=== PATIENT | female | born 1980 | race Caucasian/White ===

== ENCOUNTER 2023-09-01 09:32 | Outpatient (AMB) | payer BC, SELFPAY ==
--- NOTE | 2023-09-01 09:43 | A.OFFPC_ITS ---
Vital Signs 09/01/23 09:47 Height 5 ft 7 in Weight 299 lb 4 oz BMI 46.9 BP 118/62 Blood Pressure Location Lt brachial Position Sitting Pulse 80 Pulse Source Pulse Oximeter Pulse Oximetry (%) 98 Oxygen Delivery Method Room Air Intake Visit Reasons: establish care Intake Note: Patient is a new patient here to establish care for Protein S deficiency. Transferring care from unknown. Medical records have not been requested and have received. Salvationist Required: No Shed Workers Supervisor: Not Required per policy Accompanied by: Self / Same As Patient Allergies No Known Allergies Allergy (Verified 09/01/23 10:42) Medication List - Last Reconciled 09/01/23 by Ehsan Cisneros MD No Known Home Meds Tobacco use date assessed: 09/01/23 Dental Screening Dental Screen Date: 09/01/23 Did you have a dental visit in the last 12 months?: No Did you have a dental problem in the last 6 months where you did not have access to dental care?: No Was dental information given to patient?: Patient has dentist HPI establish care HPI Details 43-year-old female presents to the [facility] to establish her care. Patient reports that she has not seen a provider in 13 years. She was last seen in [place] when she had needed care. Patient reports that she has a known deficiency of protein S. Currently on no anticoagulation. However, she reports that she needs anticoagulation for air travel. 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 1. Little interest or pleasure in doing things: not at all 2. Feeling down, depressed, or hopeless: not at all 3. Trouble falling or staying asleep, or sleeping too much: not at all 4. Feeling tired or having little energy: not at all 5. Poor appetite or overeating: not at all 6. Feeling bad about yourself - or that you are a failure or have let yourself or your family down: not at all 7. Trouble concentrating on things, such as reading the newspaper or watching television: not at all 8. Moving or speaking so slowly that other people could have noticed. Or the opposite - being so fidgety or restless that you have been moving around a lot more than usual: not at all 9. Thoughts that you would be better off or of hurting yourself in some way: not at all Total score: 0 Depression Screening Interpretation: Negative Depression Screening Done: Yes Source: Developed by Drs. Adrian Adkins, Steph Ferraro, Cole Mcqueen and colleagues, with an educational kori from [employer]. Thrive Questionnaire Date Thrive assessed: 09/01/23 I am a: Patient What is your living situation today?: I have a steady place to live Within the past 12 months, did the food you bought not last and you didn't have the money to get more?: Never true Within the past 12 months, did you worry whether your food would run out before you got money to buy more?: Never true Do you have trouble paying for medicines?: No Do you have trouble getting transportation to medical appointments?: No Do you have trouble paying your heating and electricity bill?: No Do you have trouble taking care of your child, family member or friend?: No Do you have trouble with day-to-day activities such as bathing, preparing meals, shopping, managing finances, etc.?: No Are you currently unemployed and looking for a job?: No Are you interested in more education?: No Currently or been in a relationship where the following occur: no concerns reported THRIVE Score: 0 AUDIT C Alcohol Use Questionnaire (AUDIT-C) 1. How often do you have a drink containing alcohol?: Never Total Score: 0 ASHLEE-7 AMB Questionnaire ASHLEE-7 Date ASHLEE - 7 assessed: 09/01/23 Feeling nervous, anxious, or on edge: 0 = Not at all Not being able to stop or control worryin = Not at all Worrying too much about different things: 0 = Not at all Trouble relaxin = Not at all Being so restless that it is hard to sit still: 0 = Not at all Becoming easily annoyed or irritable: 0 = Not at all Feeling afraid as if something awful might happen: 0 = Not at all Total ASHLEE-7 score (0-4 normal; 5-9 mild; 10-14 moderate; 15-21 severe): 0 Source: Developed by Drs. Adrian Adkins, Steph Ferraro, Cole Mcqueen and colleagues, with an educational kori from [employer]. Physical exam (Primary Care) Vital Signs: Last Vital Signs Pulse 80 09/01/23 09:47 BP 118/62 09/01/23 09:47 Pulse Ox 98 09/01/23 09:47 Oxygen Delivery Method Room Air 09/01/23 09:47 BMI result Body Mass Index 46.9 BMI Assessment/Plan discussion: High (1 lb per week weight loss suggested.) BMI High, discussed plan: lifestyle, weight reduction, dietary and physical activity Tobacco/Smoking Status: Tobacco use Status Tobacco use date assessed 09/01/23 09/01/23 09:57 Patient Tobacco Use Status Former Tobacco user 09/01/23 09:57 e-Cigarette/Vaping Use Never Used 09/01/23 09:57 PHQ-9: PHQ-9 Score PHQ-9: Total score 0 09/01/23 09:57 Depression Screening Interpretation: Negative Thrive Assessment: Date of Thrive Assessment Date Thrive assessed 09/01/23 09/01/23 09:57 Currently or been in a relationship where the following occur: no concerns repo rted Const General: cooperative and healthy appearing Nutritional Appearance: well nourished Orientation/consciousness: patient oriented x3 Limitations: no limitations HENMT Head: Yes normal to inspection Eyes General: appearance normal, both eyes and all related structures Neck Neck: Yes normal visual inspection Chest Chest palpation & inspection: normal palpation of entire chest wall Resp Effort & Inspection: normal respiratory effort Neuro General: patient oriented x3 Assessment and Plan Assessment & Plan (1) Protein S deficiency: Code(s): D68.59 - Other primary thrombophilia Plan: Blood work has been requested. Will call with the results. Patient requesting episodic anticoagulation which I am not familiar with. Hematology consult will be obtained. Orders: Orders Lipid Panel Today D68.59 - Other primary thrombophilia Thyroid Stimulating Hormone Today D68.59 - Other primary thrombophilia UA and rflx microscopic Today D68.59 - Other primary thrombophilia Basic Metabolic Panel Today D68.59 - Other primary thrombophilia Complete Blood Count no Diff Today D68.59 - Other primary thrombophilia Liver Panel Today D68.59 - Other primary thrombophilia Coding Level of Care Code New Pt Level 4 (14023) Diagnoses Protein S deficiency D68.59
[2023-09-01 09:47] VITALS: BP 118/62; PULSE 80; O2SAT 98; BMI 46.9
== END 2023-09-01 10:40 | disposition home or self-care (01) ==
PROVIDERS: PCP Physician Assistant; Visit Provider Internal Medicine
DX: D68.59 Other primary thrombophilia (principal)
CPT/HCPCS: 99204

== ENCOUNTER 2023-09-01 10:44 | Outpatient (REF) | payer BC, SELFPAY ==
[2023-09-01 12:03] LABS: Hematocrit 39.5 % (37.0-47.0); Hemoglobin 12.7 g/dl (12.0-16.0); Mean Corpuscular Volume 79.8 fL (80.0-98.0); Platelet Count 402 X10*3/uL (160-400); Red Blood Count 4.95 X10*6/uL (4.20-5.50)
[2023-09-01 12:31] LABS: Bacteria Urine Trace (None Seen); Hyaline Casts Urine 0-2 /LPF (0-2); RBC Urine 0-2 /HPF (0-2); Squamous Epithelial Cell Urine 0-2 /HPF (0-2); WBC Urine 0-5 /HPF (0-5)
[2023-09-01 12:47] LABS: Alanine Aminotransferase 17 U/L (0-31); Albumin Level 3.9 g/dL (3.5-5.0); Alkaline Phosphatase 76 U/L (39-117); Anion Gap 14 (12-20); Aspartate Amino Transferase 10 U/L (5-31); Bilirubin Direct 0.1 mg/dL (0.0-0.5); Bilirubin Total 0.4 mg/dL (0.0-1.0); Blood Urea Nitrogen 14 mg/dL (9-16); Calcium 9.3 mg/dL (8.4-10.2); Carbon Dioxide 26 mmol/L (22-29); Chloride 103 mmol/L (96-108); Cholesterol 232 mg/dL (<200); Estimated Glomerular Filt Rate > 60; Glucose Random 110 mg/dL (60-115); HDL Cholesterol 56 mg/dL (>40); LDL Cholesterol Calculated 146 mg/dL (<100); Potassium 3.9 mmol/L (3.3-5.1); Sodium 139 mmol/L (135-145); Total Protein 7.8 g/dL (6.5-8.0); Triglycerides 150 mg/dL (<150)
[2023-09-01 13:01] LABS: Thyroid Stimulating Hormone 1.97 uIU/mL (0.32-4.0)
== END 2023-09-01 10:45 | disposition home or self-care (01) ==
LOC: HO.LAB 10:44
PROVIDERS: Visit Provider Internal Medicine
DX: D68.59 Other primary thrombophilia (principal)
CPT/HCPCS: 36415; 80048; 80061; 80076; 81001; 84443; 85027

== ENCOUNTER 2023-09-20 10:46 | Outpatient (AMB) | payer BC, SELFPAY ==
[2023-09-20 10:47] VITALS: BP 144/78; PULSE 106; O2SAT 97
--- NOTE | 2023-09-20 10:47 | HO.NEPHOV ---
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 Bushra is a pleasant 43-year-old woman with history of protein S deficiency who was recently found to have proteinuria by dipstick. She has been referred for evaluation of proteinuria. Overall Bushra has been enjoying reasonably good health. Her grandmother and mother tested positive for protein S deficiency. She underwent the genetic testing and tested positive for protein S deficiency. She has no history of any thrombotic events. . She has 1 child age 13. Overall was normal. She underwent exploratory laparotomy for abdominal mass and was found to have a distended bladder Her renal function has been stable. She has dyslipidemia. Atorvastatin has been prescribed but she has not started taking the medication. No history of hypertension and diabetes mellitus She has an elevated BMI. She is history of smoking she quit smoking few years ago. She used to smoke heavily more than a pack a day. No history of any alcohol abuse. She is originally from [place]. Her used to be in the service currently he drives a truck. 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 Cognitive needs: No Hearing needs: No Vision needs: No Physical Exam Vital Signs: Last Vital Signs Pulse 106 H 09/20/23 10:47 BP 144/78 H 09/20/23 10:47 Pulse Ox 97 09/20/23 10:47 Oxygen Delivery Method Room Air 09/20/23 10:47 Const General: comfortable Nutritional Appearance: well nourished Orientation/consciousness: patient oriented x3 HEENT Head: No normal to inspection Mouth: moist mucous membranes Neck Neck: Yes supple and Yes no JVD Resp Auscultation: clear to auscultation bilaterally, no rales and rub present Cardio Jugular venous distension: no JVD Palpation: no palpable S3 and no palpable S4 Heart sounds: no rubs GI Palpation (GI): Soft to palpation and nontender Percussion: No Fluid wave present General: Yes no CVA tenderness Back/Spine/Pelvis Back: no CVA tenderness Skin General skin exam: no rashes or lesions noted Neuro General: patient oriented x3 Extrem General: Yes no pedal edema and No clubbing Results Reviewed Nephrology Results: Hgb 12.7 g/dl (12.0-16.0) 09/01/23 WBC 13.8 X10*3/uL (4.8-10.8) H 09/01/23 Plt Count 402 X10*3/uL (160-400) H 09/01/23 Sodium 139 mmol/L (135-145) 09/01/23 Potassium 3.9 mmol/L (3.3-5.1) 09/01/23 Chloride 103 mmol/L (96-108) 09/01/23 Carbon Dioxide 26 mmol/L (22-29) 09/01/23 BUN 14 mg/dL (9-16) 09/01/23 Creatinine 0.69 mg/dL (0.5-1.4) 09/01/23 Calcium 9.3 mg/dL (8.4-10.2) 09/01/23 Urine Protein 300 (3+) mg/dL (Neg-Trace) H 09/01/23 Assessment & Plan Assessment & Plan (1) Proteinuria: Code(s): R80.9 - Proteinuria, unspecified Category: Medical (2) Protein S deficiency: Code(s): D68.59 - Other primary thrombophilia Category: Medical Plan . 43-year-old woman with a history of protein insufficiency and elevated BMI as proteinuria by dipstick. Initiated workup for proteinuria including urine protein creatinine ratio and basic serologies. At the present time renal function is stable. Given the history of dyslipidemia if she has nephrotic range proteinuria we she will need further workup for nephrotic syndrome. Blood pressure is well controlled. Encouraged her to stay on low-sodium diet She will benefit from weight loss. Further workup and recommendation will be based on the outcome of the baseline investigations as outlined Orders: Orders Complement C3 Today R80.9 - Proteinuria, unspecified Complement C4 Today R80.9 - Proteinuria, unspecified Creatinine Urine Today N05.9 - Unspecified nephritic syndrome with unspecified morphologic changes, R80.9 - Proteinuria, unspecified UA and rflx microscopic Today R80.9 - Proteinuria, unspecified Partial Thromboplastin Time Today D68.59 - Other primary thrombophilia, R80.9 - Proteinuria, unspecified Neutrophil Cytoplasma Ab Today R80.9 - Proteinuria, unspecified NAMRATA Reflex Titer and Pattern Today R80.9 - Proteinuria, unspecified Phospholipase A2 Receptor Pnl Today R80.9 - Proteinuria, unspecified Protein Electrophoresis, Serum Today R80.9 - Proteinuria, unspecified Total Protein Urine Random Today R80.9 - Proteinuria, unspecified Prothrombin Time INR Today D68.59 - Other primary thrombophilia, R80.9 - Proteinuria, unspecified Coding Level of Care Code New Pt Level 4 (94756) Diagnoses Proteinuria R80.9 Protein S deficiency D68.59
== END 2023-09-20 11:11 | disposition home or self-care (01) ==
PROVIDERS: PCP Internal Medicine; Visit Provider Internal Medicine Hypertension Specialist
DX: R80.9 Proteinuria, unspecified (principal); D68.59 Other primary thrombophilia
CPT/HCPCS: 99204

== ENCOUNTER → 2023-09-20 10:46 | Outpatient (BNVA) | payer BC, SELFPAY | PROVIDERS: PCP Internal Medicine; Visit Provider Internal Medicine Hypertension Specialist ==

== ENCOUNTER 2023-09-20 11:21 | Outpatient (REF) | payer BC, SELFPAY ==
[2023-09-20 11:59] LABS: INTERNATIONAL NORM RATIO 0.8 (0.9-1.1); Prothrombin Time 10.3 SEC (11.1-13.3)
[2023-09-20 12:02] LABS: Appearance Urine Clear; Color Urine Yellow; Glucose Urine UA 100 mg/dL (Negative); Leukocyte Esterase Urine Negative (Negative); Nitrite Urine Negative (Negative); Specific Gravity - Urine 1.015 (1.005-1.025); UMIC TRIGGER UA YES; Urine Blood Small (1+) (Negative); Urine Ketones Negative (Negative); Urine Protein 100 (2+) mg/dL (Neg-Trace)
[2023-09-20 12:02] LABS: Partial Thromboplastin Time 28.2 SEC (26.0-36.8)
[2023-09-20 12:12] LABS: Bacteria Urine Trace (None Seen); Hyaline Casts Urine 0-2 /LPF (0-2); RBC Urine 0-2 /HPF (0-2); Squamous Epithelial Cell Urine 0-2 /HPF (0-2); WBC Urine 0-5 /HPF (0-5)
[2023-09-20 12:21] LABS: Creatinine Urine 39.58 mg/dL; Total Protein Urine Random 102 mg/dL (<12)
[2023-09-21 22:58] LABS: Prot Elec - Albumin 3.4 g/dL (3.8-4.8); Prot Elec - Alpha1 0.4 g/dL (0.2-0.3); Prot Elec - Alpha2 0.9 g/dL (0.5-0.9); Prot Elec - Beta 1 0.5 g/dL (0.4-0.6); Prot Elec - Beta 2 0.5 g/dL (0.2-0.5); Prot Elec - Gamma 1.2 g/dL (0.8-1.7); Prot Elec - Total Protein 6.8 g/dL (6.1-8.1)
[2023-09-22 08:54] LABS: Complement C3 212 mg/dL (83-193)
[2023-09-24 11:53] LABS: Atypical P-ANCA Titer 1:20 titer (<1:20); Neutrophil Cyto Ab Screen ATYP P-ANCA POS (NEGATIVE)
[2023-09-27 09:39] LABS: Anti Nuclear Antibody Pattern Nuclear, Homogeneous; Anti Nuclear Antibody Screen POSITIVE (NEGATIVE)
[2023-10-01 21:24] LABS: Phospholipase A2 IgG ELISA <4 RU/mL; Phospholipase A2 IgG IFA NEGATIVE (NEGATIVE)
== END 2023-09-20 11:22 | disposition home or self-care (01) ==
LOC: HO.LAB 11:21
PROVIDERS: Visit Provider Internal Medicine Hypertension Specialist
DX: R80.9 Proteinuria, unspecified (principal); D68.59 Other primary thrombophilia; N05.9 Unspecified nephritic syndrome with unspecified morphologic changes
CPT/HCPCS: 36415; 81001; 81003; 82570; 83520; 84156; 84165; 85610; 85730; 86036; 86037; 86038; 86039; 86160; 86255

== ENCOUNTER 2023-09-21 09:15 | Outpatient (REF) | payer BC, SELFPAY ==
--- NOTE | ~2023-09-21 | MM_ITS ---
EXAMINATION: MM SCREENING DIGITAL BREAST TOMOSYNTHESIS, BILATERAL CLINICAL INFORMATION: Screening. Asymptomatic. No family history of breast CA. No prior surgeries. (As per technologist note) COMPARISON: Mammography: None. Baseline exam. TECHNIQUE: Digital breast tomosynthesis is performed in both the craniocaudal and mediolateral oblique views along with computer-aided detection (CAD). Synthesized 2D images are generated from the tomosynthesis. FINDINGS: There are scattered areas of fibroglandular density (ACR BI-RADS breast composition Category b). There are skin calcifications in the right greater than left breasts. These are benign. Minor parenchymal asymmetry in the upper outer posterior right breast, which has the appearance of benign breast tissue and is not suspicious on mammography. There is a lymph node in the axillary tail of the left breast. In the left breast there is a focal tubular asymmetry in the 6:00 axis, anterior one third, most likely a dilated duct, however spot compression views recommended in the CC and MLO projections, with full-field left ML view as well. Ultrasound recommended should the finding persist. MM/MM tomosynthesis screening BI IMPRESSION: Focal asymmetry left breast 6:00 axis as detailed above. Diagnostic views recommended as above. No suspicious finding in the right breast. ASSESSMENT: BI-RADS BI-RADS 0 - Incomplete: Needs additional Imaging. RECOMMENDATION: 1. Additional views of the 6:00 axis left breast. 2. Targeted ultrasound if warranted after review of the additional views. 3. Radiology department staff will contact the patient for additional imaging. Additional Imaging required This examination should not preclude the clinical evaluation of a suspicious palpable abnormality.
== END 2023-09-21 09:16 | disposition home or self-care (01) ==
LOC: HO.MAMMO 09:15
PROVIDERS: PCP Internal Medicine; Visit Provider Internal Medicine
DX: Z12.31 Encounter for screening mammogram for malignant neoplasm of breast (principal)
CPT/HCPCS: 77063; 77067

== ENCOUNTER → 2023-09-21 09:45 | Outpatient (BNV) | payer BC, SELFPAY | PROVIDERS: PCP Internal Medicine; Visit Provider Radiology Diagnostic Radiology | DX: Z12.31 Encounter for screening mammogram for malignant neoplasm of breast (principal) | CPT/HCPCS: 77063; 77067 ==

== ENCOUNTER → 2023-09-29 09:47 | Outpatient (BNV) | payer BC, SELFPAY | PROVIDERS: PCP Internal Medicine; Referring Provider Internal Medicine; Visit Provider Internal Medicine | DX: D68.59 Other primary thrombophilia (principal) | CPT/HCPCS: 99204 ==

== ENCOUNTER 2023-09-30 09:39 | Outpatient (AMB) | payer BC, SELFPAY ==
[2023-09-30 09:41] VITALS: BP 118/86; PULSE 102; O2SAT 98; BMI 47.1
--- NOTE | 2023-09-30 09:41 | HO.NEPHOV_ITS ---
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 Bushra is a pleasant 43-year-old woman with history of protein S deficiency who was recently found to have proteinuria by dipstick. She has been referred for evaluation of proteinuria. Overall Bushra has been enjoying reasonably good health. Her grandmother and mother tested positive for protein S deficiency. She underwent the genetic testing and tested positive for protein S deficiency. She has no history of any thrombotic events. . She has 1 child age 13. Overall was normal. She underwent exploratory laparotomy for abdominal mass and was found to have a distended bladder Her renal function has been stable. She has dyslipidemia. Atorvastatin has been prescribed but she has not started taking the medication. No history of hypertension and diabetes mellitus She has an elevated BMI. She is history of smoking she quit smoking few years ago. She used to smoke heavily more than a pack a day. No history of any alcohol abuse. She is originally from [place]. Her used to be in the service currently he drives a truck. 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 Cognitive needs: No Hearing needs: No Vision needs: No Physical Exam Vital Signs: Last Vital Signs Pulse 102 H 09/30/23 09:41 BP 118/86 09/30/23 09:41 Pulse Ox 98 09/30/23 09:41 Oxygen Delivery Method Room Air 09/30/23 09:41 BMI result Body Mass Index 47.1 Const General: comfortable Nutritional Appearance: well nourished Orientation/consciousness: patient oriented x3 HEENT Head: No normal to inspection Mouth: moist mucous membranes Neck Neck: Yes supple and Yes no JVD Resp Auscultation: clear to auscultation bilaterally, no rales and rub present Cardio Jugular venous distension: no JVD Palpation: no palpable S3 and no palpable S4 Heart sounds: no rubs GI Palpation (GI): Soft to palpation and nontender Percussion: No Fluid wave present General: Yes no CVA tenderness Back/Spine/Pelvis Back: no CVA tenderness Skin General skin exam: no rashes or lesions noted Neuro General: patient oriented x3 Extrem General: Yes no pedal edema and No clubbing Results Reviewed Nephrology Results: Hgb 12.7 g/dl (12.0-16.0) 09/01/23 WBC 13.8 X10*3/uL (4.8-10.8) H 09/01/23 Plt Count 402 X10*3/uL (160-400) H 09/01/23 Sodium 139 mmol/L (135-145) 09/01/23 Potassium 3.9 mmol/L (3.3-5.1) 09/01/23 Chloride 103 mmol/L (96-108) 09/01/23 Carbon Dioxide 26 mmol/L (22-29) 09/01/23 BUN 14 mg/dL (9-16) 09/01/23 Creatinine 0.69 mg/dL (0.5-1.4) 09/01/23 Calcium 9.3 mg/dL (8.4-10.2) 09/01/23 Urine Protein 100 (2+) mg/dL (Neg-Trace) H 09/20/23 Urine Creatinine 39.58 mg/dL 09/20/23 Assessment & Plan Assessment & Plan (1) Protein S deficiency: Code(s): D68.59 - Other primary thrombophilia Category: Medical (2) Proteinuria: Code(s): R80.9 - Proteinuria, unspecified Category: Medical Plan . 43-year-old woman with a history of protein insufficiency and elevated BMI as proteinuria Urine protein creatinine ratio was 2.6. NAMRATA was positive atypical p-ANCA positive. C ANCA p-ANCA titers were pending C3 elevated at 2 1 2. C4 was 39. Serum cholesterol 232 with serum albumin of 3.4. Bushra has nephrotic syndrome. Differential diagnosis would include membranous nephropathy he is or FSGS in setting of obesity versus others I will arrange for a kidney biopsy for definite diagnosis. At the present time renal function is stable. Blood pressure is well controlled. Encouraged her to stay on low-sodium diet She will benefit from weight loss. Currently being evaluated by Hematology for protein S deficiency. Orders: Orders CT biopsy renal RT Today D68.59 - Other primary thrombophilia, R80.9 - Proteinuria, unspecified Coding Level of Care Code Est Pt Level 4 (95976) Diagnoses Protein S deficiency D68.59 Proteinuria R80.9
== END 2023-09-30 09:56 | disposition home or self-care (01) ==
PROVIDERS: PCP Internal Medicine; Visit Provider Internal Medicine Hypertension Specialist
DX: D68.59 Other primary thrombophilia (principal); R80.9 Proteinuria, unspecified
CPT/HCPCS: 99214

== ENCOUNTER → 2023-09-30 09:39 | Outpatient (BNVA) | payer BC, SELFPAY | PROVIDERS: PCP Internal Medicine; Visit Provider Internal Medicine Hypertension Specialist ==

== ENCOUNTER 2023-10-25 12:39 | Outpatient (REF) | payer BC, SELFPAY ==
--- NOTE | ~2023-10-25 | US_ITS ---
EXAMINATION: MM DIAGNOSTIC DIGITAL BREAST TOMOSYNTHESIS, LEFT US BREAST LIMITED, LEFT MAMMOGRAPHY: CLINICAL INFORMATION: Evaluate tubular structure left breast anterior one third approximately 6:30 o'clock axis, seen on screening baseline exam. COMPARISON: Mammography: Baseline exam 09/21/2023. TECHNIQUE: Digital breast tomosynthesis was performed in the following views: Full-field 3-D left mediolateral view, as well as 3-D spot compression left CC and MLO views. Computer-aided diagnosis was used for this study. This was followed by targeted left breast ultrasound. FINDINGS: There are scattered areas of fibroglandular density (ACR BI-RADS breast composition Category b). Diagnostic views demonstrate persistence of a tubular structure in the 6:30 o'clock axis of the left breast measuring approximately 1.1 x 0.4 x 0.6 cm with circumscribed margins and no surrounding parenchymal distortion. This is likely a dilated duct. We will evaluate this with ultrasound. No new suspicious finding in the left breast. Stable lymph node in the upper outer quadrant. ULTRASOUND: CLINICAL INFORMATION: As above. COMPARISON: No prior ultrasound. TECHNIQUE: Targeted sonographic evaluation was performed using a high frequency linear transducer. Left breast was examined in the 6:00 to 7:00 axis in Selected archived documentation. FINDINGS: LEFT BREAST: In what appears to be a dilated focal duct, there is a mildly hypoechoic serpiginous mass seen at the 6:00 30 o'clock axis, 2 cm the nipple, measuring 1.1 x 0.4 x 0.6 cm. No internal color Doppler signal. No posterior features. No surrounding parenchymal distortion. Findings are suspicious for a papilloma. Ultrasound-guided biopsy is recommended for confirmation. No additional suspicious findings in the left breast. No additional duct ectasia seen. US/US breast LT limited mamm only IMPRESSION: -Dilated duct with internal probable mass,? Papilloma in the left breast 6:30 o'clock axis, 2 cm from the nipple, correlating well with the finding on mammography. Ultrasound-guided biopsy is recommended for confirmation. -Findings and impression were discussed with the patient in detail. OVERALL ASSESSMENT: Mammography: BI-RADS 4 - Suspicious finding Ultrasound: BI-RADS 4 - Suspicious finding RECOMMENDATION: Biopsy recommended
== END 2023-10-25 12:40 | disposition home or self-care (01) ==
LOC: HO.MAMMO 12:39
PROVIDERS: PCP Internal Medicine; Visit Provider Internal Medicine
DX: N64.89 Other specified disorders of breast (principal)
CPT/HCPCS: 76642; 77061; 77065

== ENCOUNTER → 2023-10-25 13:00 | Outpatient (BNV) | payer BC, SELFPAY | PROVIDERS: PCP Internal Medicine; Visit Provider Radiology Diagnostic Radiology | DX: R92.8 Other abnormal and inconclusive findings on diagnostic imaging of breast (principal) | CPT/HCPCS: 76642; 77061; 77065 ==

== ENCOUNTER 2023-10-26 08:50 | Day surgery (SDC) | payer BC, SELFPAY ==
[2023-10-26] VITALS (14 sets, daily range): BP systolic 118–146; BP diastolic 79–96; PULSE 78–96; RESP 14–20; TEMP 36.2–36.7; O2SAT 97–99; BMI 47.0
--- NOTE | ~2023-10-26 | CT_ITS ---
Nephrotic range proteinuria. Protein S deficiency PROCEDURES: 1. Limited pre-procedure CT of the abdomen. Permanent images saved in PACS. 2. CT-guided nontargeted biopsy of the left kidney. 3. Limited post procedure CT of the abdomen. Permanent images saved in PACS. CLINICIANS: Ariel Velazco PA-C MEDICATIONS: -Versed 1 mg, Fentanyl 50 mcg, and lidocaine 1% 10 mL SQ -Antibiotics: None -For additional details, please see nursing flowsheet. COMPLICATIONS: None ESTIMATED BLOOD LOSS: < 5 ml CONTRAST: None SPECIMENS: 3 x 18 g cores were placed in saline MODERATE SEDATION TIME: 17 min PROCEDURE NOTE: The procedure, risks, benefits, and alternatives were carefully explained to the patient and written informed consent was obtained. The patient was placed prone on the CT table. A timeout was performed. A limited CT of the abdomen was performed to localize the left kidney and choose appropriate needle entry and trajectory. The patient was prepped and draped in usual sterile fashion. The skin and deeper soft tissues were anesthetized with lidocaine. Under CT guidance, a 17 gague trocar needle was advanced to the left kidney. An 18 gauge biopsy device was inserted through the trocar needle and advanced into the left lower pole of the kidney. A total of 3, 18 gague cores performed. The specimens was placed in saline soaked Telfa pad. A Gelfoam slurry was then administered through the trocar needle and into the left perinephric space. The needle was removed. A dry dressing was applied and secured with Tegaderm. There were no immediate complications. The patient was stable after the procedure and was transferred to the post anesthesia care unit. The procedure was done under moderate sedation with a dedicated nurse for monitoring of vital signs. CT/CT biopsy renal LT Impression: CT-guided nontargeted left renal biopsy This procedure was performed by Ariel Velazco PA-C and supervised by Dr. Gómez.
[2023-10-26 09:40] LABS: UPreg QC Valid YES; Urine Pregnancy NEGATIVE (NEGATIVE)
--- NOTE | 2023-10-26 10:26 | MHC.SHP ---
Pre-Procedural Eval Section A - 24 Hr Update-Section A only Date of Service: 10/26/23 Section B - Complete if H&P > 30 days Chief Complaint: RT RENAL, PROTEINURIA, PROTEIN S DEFICIENCY Details of Present Illness: 43 y/o female with nephrotic range proteinuria and proteins deficiency. Nephrology requests a renal biopsy Relevant Family History (Specify if Yes): No Relevant Social History: None Present Medications: see Short Stay Collaborative assessment Medical History: Significant History History of Previous Operations: No relevant previous surgery Allergies: Allergies Allergy/AdvReac Type Severity Reaction Status Date / Time No Known Allergies Allergy Verified 09/30/23 09:43 Review of Systems Sugical H&P ROS: Negative: Constitution, Cardiovascular and Respiratory Exam Surgical H&P Exam: Normal: Heart, Normal: Lungs, Normal: Skin and Normal: Neurological and Not Evaluated: HEENT Plan -CT non targeted renal biopsy Time Spent With Patient Time: Total time managing care of this patient today ____ minutes.
== END 2023-10-26 14:37 | disposition home or self-care (01) ==
PROVIDERS: Physician Assistant Surgical; Radiology Vascular & Interventional Radiology; PCP Internal Medicine; Visit Provider Internal Medicine Hypertension Specialist
DX: N04.9 Nephrotic syndrome with unspecified morphologic changes (principal); D68.59 Other primary thrombophilia
CPT/HCPCS: 50200; 77012; 81025; 86850; 86900; 86901; 88300; 88305; 88313; 88346; 88348; 88350; 99152; J0360; J2250; J2310; J3010

== ENCOUNTER → 2023-10-26 10:17 | Outpatient (BNV) | payer BC, SELFPAY | PROVIDERS: PCP Internal Medicine; Visit Provider Physician Assistant Surgical | DX: R80.9 Proteinuria, unspecified (principal) | CPT/HCPCS: 50200; 77012 ==

== ENCOUNTER 2023-11-08 08:23 | Outpatient (AMB) | payer BC, SELFPAY ==
--- NOTE | 2023-11-08 08:24 | MHC.OFFVIS ---
Vital Signs 11/08/23 08:31 Height 5 ft 7.72 in Weight 297 lb BMI 45.5 BP 142/92 H Blood Pressure Location Lt brachial Position Sitting Pulse 97 Intake Visit Reasons: US guided biopsy,lft breast, 6 O'clock mass Intake Note: This patient presents for an assessment for US guided biopsy left breast 6 O'clock mass. Patient c/o; reports no breast complaints. 10/25/2023-MM additional views 10/25/2023: Breast US Underwriting Manager Required: No Computer Specialist: Computer Specialist offered & declined Accompanied by: Self / Same As Patient Allergies No Known Allergies Allergy (Verified 11/08/23 08:32) Medication List - Last Reconciled 11/08/23 by Tez Whatley MD atorvastatin 10 mg PO BEDTIME HPI HPI US guided biopsy,lft breast, 6 O'clock mass: Details: [age] year old female referred for a left breast mass. She had undergone a screening mammogram last Sep, 2023 and was noted to have focal asymmetry on the left breast. She was brought in for recall mammogram and ultrasound. This showed a mildly hypoechoic serpiginous mass measuring 1.1 x 0.4 x 0.6 cm along the 6:00 to 3:00 axis., suspicious for a papilloma. An ultrasound-guided biopsy was therefore recommended by the radiologist. She otherwise denies any palpable breast mass . Her menarche was at age of 15. Her 1st was at age of 28. She had 1 .. She denies any family history of breast cancer. 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 Cognitive needs: No Hearing needs: No Vision needs: No Female Reproductive History Menstrual Age of Menarche: 15 Total pregnancies: 1 Full term: 1 Review of Systems Const Denies chills and Denies fever(s) Card Denies chest pain, Denies dyspnea and Denies dyspnea on exertion Resp Denies cough, Denies dyspnea and Denies dyspnea on exertion GI Denies hematochezia and Denies change in bowel habits Denies hematuria Musc Denies back pain and Denies limited range of motion Neuro Denies focal weakness and Denies convulsions Psych Denies depression and Denies mood swings Physical Exam Const General: comfortable and no acute distress Orientation/consciousness: patient oriented x3 Neck Neck: Yes no lymphadenopathy Chest Other: No palpable breast masses, no nipple or skin changes, no axillary lymphadenopathy Resp Auscultation: clear to auscultation bilaterally Cardio Rhythm: regular rhythm GI Palpation (GI): Soft to palpation, nontender and no guarding Neuro General: patient oriented x3 Assessment & Plan Assessment & Plan (1) Left breast mass: Code(s): N63.20 - Unspecified lump in the left breast, unspecified quadrant Category: Medical Plan: She has this mildly hypoechoic serpiginous mass on the left breast seen on imaging as described above. I explained to her the technique of ultrasound biopsy as recommended by the radiologist I will see her again in the office next week to discuss the path report. She understands the plan and is comfortable with this. Orders: Orders US breast ndl core biopsy LT 11/05/23 N63.20 - Unspecified lump in the left breast, unspecified quadrant Coding Level of Care Code New Pt Level 3 (39585) Diagnoses Left breast mass N63.20
[2023-11-08 08:31] VITALS: BP 142/92; PULSE 97; BMI 45.5
== END 2023-11-08 08:47 | disposition home or self-care (01) ==
PROVIDERS: PCP Internal Medicine; Visit Provider Surgery
DX: N63.20 Unspecified lump in the left breast, unspecified quadrant (principal)
CPT/HCPCS: 99203

== ENCOUNTER 2023-11-08 08:51 | Outpatient (REF) | payer BC, SELFPAY ==
--- NOTE | ~2023-11-08 | MM_ITS ---
PROCEDURE: US GUIDED BREAST BIOPSY, LEFT CLINICAL INFORMATION: Somewhat tubular/serpiginous mass 6:00 axis left breast for biopsy, likely a intraductal papilloma. COMPARISON: 10/25/2023 ultrasound and diagnostic left mammogram, screening mammography 09/21/2023. PROCEDURAL DETAILS: The details of the procedure, as well as the risks, benefits, and alternatives to the procedure were explained to the patient in detail and all of her questions were answered, after which written informed consent was obtained. Site and side were confirmed. Prior to the procedure, sonography revealed a similar 1.1 x 0.4 x 0.6 cm tubular mildly hypoechoic mass 6:00 axis left breast. A time-out was performed, the lesion intended for biopsy was targeted, and the skin of the overlying left breast was then marked, prepped and draped in the usual sterile fashion. Using sonographic guidance, sterile technique, and 1% lidocaine without epinephrine for local anesthesia, multiple core biopsies were obtained through the targeted area with a 14G spring loaded Design Aera core biopsy device. There was real-time confirmation of appropriate needle passage. Sampling was documented. At the completion of tissue sampling, a single open coil-shaped metallic clip was deposited at the biopsy site. There was no evidence of immediate complication. SPECIMEN: 3 well formed core samples were obtained DIGITAL POST-PROCEDURE MAMMOGRAPHY: Breast density: The tissue contains scattered areas of fibroglandular density. BI-RADS version 5, category B. There are no new mammographic findings demonstrated. The postprocedure 2-view direct digital mammogram reveals satisfactory and accurate positioning of the biopsy clip. No hematoma present. The patient tolerated the procedure well and, after assuring adequate hemostasis, was discharged in good condition after reviewing postbiopsy breast care instructions. Final pathology results are pending. MM/MM diagnostic mammo unilat LT IMPRESSION: 1. No immediate complication from ultrasound-guided percutaneous biopsy left breast, 6:00 axis tubular mass,? Intraductal Papilloma. 2. Ultrasound was used to localize and guide marker clip placement. 3. The 2-view direct digital postprocedure mammogram reveals satisfactory and accurate positioning of the biopsy clip. 4. Final pathology results are pending. A separate report with final recommendations will be issued once these results are made available.
[2023-11-08] MEDS: Sodium Bicarbonate 8.4% 50 MEQ/50 ML VIAL SUBCUT (10:42)
[2023-11-08] MEDS: Lidocaine HCl 1 % 20 ML VIAL 8 ML SUBCUT (10:43)
== END 2023-11-08 08:52 | disposition home or self-care (01) ==
LOC: HO.MAMMO 08:51
PROVIDERS: PCP Internal Medicine; Visit Provider Surgery
DX: N63.25 Unspecified lump in the left breast, overlapping quadrants (principal)
CPT/HCPCS: 19083; 77062; 77065; 88305; A4648; C1894

== ENCOUNTER → 2023-11-08 10:00 | Outpatient (BNV) | payer BC, SELFPAY | PROVIDERS: PCP Internal Medicine; Visit Provider Radiology Diagnostic Radiology | DX: N63.24 Unspecified lump in the left breast, lower inner quadrant (principal) | CPT/HCPCS: 19083; 77065 ==

== ENCOUNTER 2023-11-11 10:05 | Outpatient (AMB) | payer BC, SELFPAY ==
[2023-11-11 10:24] VITALS: BP 128/84; PULSE 108; O2SAT 97; BMI 45.7
--- NOTE | 2023-11-11 10:24 | HO.NEPHOV ---
Vital Signs 11/11/23 10:24 Height 5 ft 7 in Weight 292 lb BMI 45.7 BP 128/84 Blood Pressure Location Lt brachial Position Sitting Pulse 108 H Pulse Source Pulse Oximeter Pulse Oximetry (%) 97 Oxygen Delivery Method Room Air Intake Visit Reasons: F/U/ Conf Technology Resource Teacher Required: No Accompanied by: Self / Same As Patient Allergies No Known Allergies Allergy (Verified 11/11/23 10:25) HPI Comments Details: . Bushra is a pleasant 43-year-old woman with history of protein S deficiency who was recently found to have proteinuria by dipstick. She has been referred for evaluation of proteinuria. Overall Bushra has been enjoying reasonably good health. Her grandmother and mother tested positive for protein S deficiency. She underwent the genetic testing and tested positive for protein S deficiency. She has no history of any thrombotic events. . She has 1 child age 13. Overall was normal. She underwent exploratory laparotomy for abdominal mass and was found to have a distended bladder Her renal function has been stable. She has dyslipidemia. Atorvastatin has been prescribed but she has not started taking the medication. No history of hypertension and diabetes mellitus She has an elevated BMI. She is history of smoking she quit smoking few years ago. She used to smoke heavily more than a pack a day. No history of any alcohol abuse. She is originally from [place]. Her used to be in the service currently he drives a truck. 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 11/11/2023. She was started dieting and has lost about 9-11 lb. She underwent kidney biopsy. Final report is still pending. No new issues. 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 Cognitive needs: No Hearing needs: No Vision needs: No Female Reproductive History Menstrual Age of Menarche: 15 Physical Exam Vital Signs: Last Vital Signs Pulse 108 H 11/11/23 10:24 BP 128/84 11/11/23 10:24 Pulse Ox 97 11/11/23 10:24 Oxygen Delivery Method Room Air 11/11/23 10:24 BMI result Body Mass Index 45.7 Const General: comfortable; No acute distress Orientation/consciousness: patient oriented x3 Eyes General: appearance normal, both eyes and all related structures Visual Sharif: normal visual sharif by confrontation Neck Neck: Yes supple and Yes no JVD Resp Effort & Inspection: normal respiratory effort and respiratory effort not decreased Auscultation: rhonchi Cardio Palpation: no palpable S3 and no palpable S4 Heart sounds: no rubs GI Inspection: Yes normal to inspection Palpation (GI): Soft to palpation Percussion: Yes normal to percussion Auscultation: normal bowel sounds General: Yes no CVA tenderness Back/Spine/Pelvis Back: no CVA tenderness Skin General skin exam: no petechiae and no purpura Neuro General: patient oriented x3 and no focal motor deficits Extrem General: No clubbing and No edema Results Reviewed Nephrology Results: Sodium Pending 11/11/23 Potassium Pending 11/11/23 Chloride Pending 11/11/23 Carbon Dioxide Pending 11/11/23 BUN Pending 11/11/23 Creatinine Pending 11/11/23 Calcium Pending 11/11/23 Assessment & Plan Assessment & Plan (1) Proteinuria: Code(s): R80.9 - Proteinuria, unspecified Category: Medical (2) Protein S deficiency: Code(s): D68.59 - Other primary thrombophilia Category: Medical Plan . 43-year-old woman with a history of protein insufficiency and elevated BMI as proteinuria Urine protein creatinine ratio was 2.6. NAMRATA was positive atypical p-ANCA positive. C ANCA p-ANCA titers were pending C3 elevated at 2 1 2. C4 was 39. Serum cholesterol 232 with serum albumin of 3.4. Bushra has nephrotic syndrome. 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 Genetic studies are in progress. Await final At the present time renal function is stable. Blood pressure is well controlled. Encouraged her to stay on low-sodium diet She will benefit from weight loss. Continue weight loss I will recheck urine protein creatinine ratio and would recommend starting on low-dose JOEY inhibitors. She is reluctant to start any new medications which is quite understandable. I explained the importance of an JOEY inhibitor in the setting of proteinuria. And she is agreeable. Currently being evaluated by Hematology for protein S deficiency. Orders: Orders Creatinine Urine Today R80.9 - Proteinuria, unspecified Basic Metabolic Panel Today R80.9 - Proteinuria, unspecified Creatinine Urine 6 Weeks R80.9 - Proteinuria, unspecified Total Protein Urine Random 6 Weeks R80.9 - Proteinuria, unspecified Total Protein Urine Random Today R80.9 - Proteinuria, unspecified Albumin Level Today R80.9 - Proteinuria, unspecified Coding Level of Care Code Est Pt Level 4 (32635) Diagnoses Proteinuria R80.9 Protein S deficiency D68.59
== END 2023-11-11 10:40 | disposition home or self-care (01) ==
PROVIDERS: PCP Internal Medicine; Visit Provider Internal Medicine Hypertension Specialist
DX: R80.9 Proteinuria, unspecified (principal); D68.59 Other primary thrombophilia
CPT/HCPCS: 99214

== ENCOUNTER 2023-11-11 10:05 | Outpatient (REF) | payer BC, SELFPAY ==
[2023-11-11 11:41] LABS: Appearance Urine Clear; Color Urine Yellow; Glucose Urine UA Negative (Negative); Leukocyte Esterase Urine Negative (Negative); Nitrite Urine Negative (Negative); PH 5.5 (5.0-9.0); UMIC TRIGGER UA YES; Urine Blood Small (1+) (Negative); Urine Ketones Trace mg/dL (Negative); Urine Protein 300 (3+) mg/dL (Neg-Trace)
[2023-11-11 12:12] LABS: Bacteria Urine 1+ (None Seen); Hyaline Casts Urine 0-2 /LPF (0-2); RBC Urine 0-2 /HPF (0-2); Squamous Epithelial Cell Urine 0-2 /HPF (0-2); WBC Urine 0-5 /HPF (0-5)
[2023-11-11 12:24] LABS: Albumin Level 4.1 g/dL (3.5-5.0); Anion Gap 11 (12-20); Blood Urea Nitrogen 14 mg/dL (9-16); Carbon Dioxide 27 mmol/L (22-29); Chloride 104 mmol/L (96-108); Estimated Glomerular Filt Rate > 60; Glucose Random 115 mg/dL (60-115); Potassium 4.2 mmol/L (3.3-5.1); Sodium 138 mmol/L (135-145)
[2023-11-11 12:30] LABS: Creatinine Urine 128.62 mg/dL; Total Protein Urine Random 123 mg/dL (<12)
== END 2023-11-11 10:06 | disposition home or self-care (01) ==
LOC: HO.LAB 10:05
PROVIDERS: PCP Internal Medicine; Visit Provider Internal Medicine Hypertension Specialist
DX: R80.9 Proteinuria, unspecified (principal); D68.59 Other primary thrombophilia
CPT/HCPCS: 36415; 80048; 81001; 82040; 82570; 84156

== ENCOUNTER 2023-11-17 09:29 | Outpatient (AMB) | payer BC, SELFPAY ==
--- NOTE | 2023-11-17 09:47 | A.OFFVIS_ITS ---
Vital Signs 11/17/23 09:50 Height 5 ft 7 in Weight 292 lb 0.001 oz BMI 45.7 Intake Visit Reasons: follow up breast bx 6 O'clock mass Intake Note: This patient presents for a follow-up for breast biopsy results. Patient c/o; reports no redness, reports no hot to the touch sensation, reports soreness on the biopsy site. Plaster Pattern Caster Required: No Accompanied by: Self / Same As Patient Allergies No Known Allergies Allergy (Verified 11/17/23 09:51) Medication List - Last Reconciled 11/17/23 by Tez Whatley MD atorvastatin 10 mg PO BEDTIME lisinopril 5 mg PO DAILY HPI HPI follow up breast bx 6 O'clock mass: Details: She had undergone ultrasound core biopsy of a left breast mass last 11/08/2023. She says she tolerated procedure well and currently denies significant complaints. 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 Cognitive needs: No Hearing needs: No Vision needs: No Female Reproductive History Menstrual Age of Menarche: 15 Review of Systems Const Denies chills and Denies fever(s) Card Denies chest pain, Denies dyspnea and Denies dyspnea on exertion Resp Denies cough, Denies dyspnea and Denies dyspnea on exertion GI Denies hematochezia and Denies change in bowel habits Denies hematuria Musc Denies back pain and Denies limited range of motion Neuro Denies focal weakness and Denies convulsions Psych Denies depression and Denies mood swings Physical Exam Vital Signs: BMI result Body Mass Index 45.7 Const General: comfortable and no acute distress Chest Other: No breast hematoma Resp Effort & Inspection: normal respiratory effort Assessment & Plan Assessment & Plan (1) Intraductal papilloma of left breast: Code(s): D24.2 - Benign neoplasm of left breast Category: Medical Plan: Her path report shows an intraductal papilloma without atypia. I explained to her this findings. It is reasonable to follow this closely with regular mammograms. In the absence of atypia there is very low possibility of upgrading to higher grade lesion. Another option is to proceed with the surgical excis ion. I reviewed this option with the patient. She says that she would rather hold off on surgical excision at this time. She says she is going to have the mammogram done within 1 year I did tell her that if she changes her mind, she is welcome to come back to the office to be to be re-evaluated. Coding Level of Care Code Est Pt Level 3 (85223) Diagnoses Intraductal papilloma of left breast D24.2
[2023-11-17 09:50] VITALS: BMI 45.7
== END 2023-11-17 09:56 | disposition home or self-care (01) ==
PROVIDERS: PCP Internal Medicine; Visit Provider Surgery
DX: D24.2 Benign neoplasm of left breast (principal)
CPT/HCPCS: 99213

== ENCOUNTER → 2023-11-17 09:29 | Outpatient (BNVA) | payer BC, SELFPAY | PROVIDERS: PCP Internal Medicine; Visit Provider Surgery | DX: N63.20 Unspecified lump in the left breast, unspecified quadrant (principal) ==

== ENCOUNTER 2023-12-30 09:17 | Outpatient (REF) | payer BC, SELFPAY ==
[2023-12-30 10:16] LABS: Appearance Urine Clear; Color Urine Yellow; Glucose Urine UA Negative (Negative); Leukocyte Esterase Urine Negative (Negative); Nitrite Urine Negative (Negative); PH 5.5 (5.0-9.0); Specific Gravity - Urine 1.015 (1.005-1.025); UMIC TRIGGER UA YES; Urine Blood Small (1+) (Negative); Urine Ketones Negative (Negative); Urine Protein 100 (2+) mg/dL (Neg-Trace)
[2023-12-30 10:39] LABS: Bacteria Urine Trace (None Seen); Hyaline Casts Urine 0-2 /LPF (0-2); Squamous Epithelial Cell Urine 0-2 /HPF (0-2); WBC Urine 0-5 /HPF (0-5)
[2023-12-30 10:44] LABS: Creatinine Urine 105.65 mg/dL; Total Protein Urine Random 74 mg/dL (<12)
== END 2023-12-30 09:18 | disposition home or self-care (01) ==
LOC: HO.LAB 09:17
PROVIDERS: PCP Internal Medicine; Visit Provider Internal Medicine Hypertension Specialist
DX: R80.9 Proteinuria, unspecified (principal)
CPT/HCPCS: 81001; 82570; 84156

== ENCOUNTER 2023-12-31 09:49 | Outpatient (AMB) | payer BC, SELFPAY ==
[2023-12-31 09:50] VITALS: BP 122/74; PULSE 94; BMI 42.9
--- NOTE | 2023-12-31 09:50 | HO.NEPHOV_ITS ---
Vital Signs 12/31/23 09:50 Height 5 ft 7 in Weight 274 lb BMI 42.9 BP 122/74 Blood Pressure Location Lt brachial Position Sitting Pulse 94 Intake Visit Reasons: Proteinuria/ Conf Intake Note: Follow-up Protienuria feeling good Transmission And Protection Engineer Required: No Allergies No Known Allergies Allergy (Verified 11/17/23 09:51) Medication List - Last Reconciled 12/31/23 by Angus Ferrer MD atorvastatin 10 mg PO BEDTIME HPI Comments Details: . Bushra is a pleasant 43-year-old woman with history of protein S deficiency who was recently found to have proteinuria by dipstick. She has been referred for evaluation of proteinuria. Overall Bushra has been enjoying reasonably good health. Her grandmother and mother tested positive for protein S deficiency. She underwent the genetic testing and tested positive for protein S deficiency. She has no history of any thrombotic events. . She has 1 child age 13. Overall was normal. She underwent exploratory laparotomy for abdominal mass and was found to have a distended bladder Her renal function has been stable. She has dyslipidemia. Atorvastatin has been prescribed but she has not started taking the medication. No history of hypertension and diabetes mellitus She has an elevated BMI. She is history of smoking she quit smoking few years ago. She used to smoke heavily more than a pack a day. No history of any alcohol abuse. She is originally from [place]. Her used to be in the service currently he drives a truck. 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 She was started dieting and has lost about 9-11 lb. She underwent kidney biopsy. Final report is still pending. No new issues. 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 Cognitive needs: No Hearing needs: No Vision needs: No Female Reproductive History Menstrual Age of Menarche: 15 Physical Exam Vital Signs: Last Vital Signs Pulse 94 12/31/23 09:50 BP 122/74 12/31/23 09:50 BMI result Body Mass Index 42.9 Const General: comfortable; No acute distress Orientation/consciousness: patient oriented x3 Eyes General: appearance normal, both eyes and all related structures Visual Roper: normal visual roper by confrontation Neck Neck: Yes supple and Yes no JVD Resp Effort & Inspection: normal respiratory effort and respiratory effort not decreased Auscultation: rhonchi Cardio Palpation: no palpable S3 and no palpable S4 Heart sounds: no rubs GI Inspection: Yes normal to inspection Palpation (GI): Soft to palpation Percussion: Yes normal to percussion Auscultation: normal bowel sounds General: Yes no CVA tenderness Back/Spine/Pelvis Back: no CVA tenderness Skin General skin exam: no petechiae and no purpura Neuro General: patient oriented x3 and no focal motor deficits Extrem General: No clubbing and No edema Results Reviewed Nephrology Results: Sodium 138 mmol/L (135-145) 11/11/23 Potassium 4.2 mmol/L (3.3-5.1) 11/11/23 Chloride 104 mmol/L (96-108) 11/11/23 Carbon Dioxide 27 mmol/L (22-29) 11/11/23 BUN 14 mg/dL (9-16) 11/11/23 Creatinine 0.79 mg/dL (0.5-1.4) 11/11/23 Calcium 10.0 mg/dL (8.4-10.2) 11/11/23 Urine Protein 100 (2+) mg/dL (Neg-Trace) H 12/30/23 Urine Creatinine 105.65 mg/dL 12/30/23 Assessment & Plan Assessment & Plan (1) Proteinuria: Code(s): R80.9 - Proteinuria, unspecified Category: Medical (2) Protein S deficiency: Code(s): D68.59 - Other primary thrombophilia Category: Medical (3) Hyperlipidemia: Code(s): E78.5 - Hyperlipidemia, unspecified Category: Medical Plan . 43-year-old woman with a history of protein insufficiency and elevated BMI as proteinuria Urine protein creatinine ratio was 2.6. NAMRATA was positive atypical p-ANCA positive. C ANCA p-ANCA titers were pending C3 elevated at 2 1 2. C4 was 39. Serum cholesterol 232 with serum albumin of 3.4. Bushra has nephrotic syndrome. 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 Genetic studies are in progress. Await final At the present time renal function is stable. Blood pressure is well controlled. Encouraged her to stay on low-sodium diet She will benefit from weight loss. Continue weight loss I will recheck urine protein creatinine ratio and would recommend starting on low-dose JOEY inhibitors. She is reluctant to start any new medications which is quite understandable. I explained the importance of an JOEY inhibitor in the setting of proteinuria. Currently being evaluated by Hematology for protein S deficiency. Orders: Orders Basic Metabolic Panel 3 Months R80.9 - Proteinuria, unspecified Creatinine Urine 3 Months R80.9 - Proteinuria, unspecified Total Protein Urine Random 3 Months R80.9 - Proteinuria, unspecified Lipid Panel 3 Months E78.5 - Hyperlipidemia, unspecified, R80.9 - Proteinuria, unspecified UA and rflx microscopic 3 Months R80.9 - Proteinuria, unspecified Coding Level of Care Code Est Pt Level 4 (93908) Diagnoses Proteinuria R80.9 Protein S deficiency D68.59 Hyperlipidemia E78.5
== END 2023-12-31 10:16 | disposition home or self-care (01) ==
PROVIDERS: PCP Internal Medicine; Visit Provider Internal Medicine Hypertension Specialist
DX: R80.9 Proteinuria, unspecified (principal); D68.59 Other primary thrombophilia; E78.5 Hyperlipidemia, unspecified
CPT/HCPCS: 99214

== ENCOUNTER → 2023-12-31 09:49 | Outpatient (BNVA) | payer BC, SELFPAY | PROVIDERS: PCP Internal Medicine; Visit Provider Internal Medicine Hypertension Specialist ==

== ENCOUNTER 2024-03-09 09:47 | Outpatient (AMB) | payer BC, SELFPAY ==
--- NOTE | 2024-03-09 09:53 | A.OFFPC_ITS ---
Vital Signs 03/09/24 09:54 Height 5 ft 7 in Weight 245 lb 2 oz BMI 38.4 BP 132/80 Blood Pressure Location Lt brachial Position Sitting Pulse 94 Pulse Source Pulse Oximeter Pulse Oximetry (%) 98 Oxygen Delivery Method Room Air Intake Visit Reasons: 6mth f/u Intake Note: Patient is here to follow up on HTN, Protein S deficiency. Pt decline flu shot today. Director Of Radio Services Required: No Game Designer: Not Required per policy Accompanied by: Self / Same As Patient Allergies No Known Allergies Allergy (Verified 03/09/24 10:26) Medication List - Last Reconciled 03/09/24 by Ehsan Cisneros MD atorvastatin 10 mg PO BEDTIME Tobacco use date assessed: 03/09/24 Dental Screening Dental Screen Date: 09/01/23 HPI 6mth f/u HPI Details 44-year-old female presents to the [facility] for a follow-up on her general health. Since last office visit patient has lost significant weight. She has discontinued the high blood pressure and cholesterol medications. She saw the mobile home set up person and takes Lovenox prior to long flights. Currently on no medications. 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 Adrian Adkins, Steph Ferraro, Cole Mcqueen and colleagues, with an educational kori from [employer]. Physical exam (Primary Care) Vital Signs: Last Vital Signs Pulse 94 03/09/24 09:54 BP 132/80 03/09/24 09:54 Pulse Ox 98 03/09/24 09:54 Oxygen Delivery Method Room Air 03/09/24 09:54 Care Plan Goal for BP management: Blood pressure is in range. BMI result Body Mass Index 38.4 Tobacco/Smoking Status: Tobacco use Status Tobacco use date assessed 03/09/24 03/09/24 09:58 Patient Tobacco Use Status Former Tobacco user 03/09/24 09:58 e-Cigarette/Vaping Use Never Used 03/09/24 09:58 Thrive Assessment: Date of Thrive Assessment Date Thrive assessed 09/01/23 03/09/24 09:58 Const General: cooperative and healthy appearing Nutritional Appearance: well nourished Orientation/consciousness: patient oriented x3 Limitations: no limitations HENMT Head: Yes normal to inspection Eyes General: appearance normal, both eyes and all related structures Neck Neck: Yes normal visual inspection Chest Chest palpation & inspection: normal palpation of entire chest wall Resp Effort & Inspection: normal respiratory effort Neuro General: patient oriented x3 Coding Level of Care Code Est Pt Level 4 (32438) Complex EM visit Add On [id number] Diagnoses Hyperlipidemia E78.5 Protein S deficiency D68.59 Intraductal papilloma of left breast D24.2 Assessment & Plan Assessment & Plan (1) Hyperlipidemia: Code(s): E78.5 - Hyperlipidemia, unspecified Category: Medical Plan: Fasting blood work has been ordered. Will call with the results. (2) Protein S deficiency: Code(s): D68.59 - Other primary thrombophilia Category: Medical Plan: Lead Java Developer Architect note reviewed. (3) Intraductal papilloma of left breast: Code(s): D24.2 - Benign neoplasm of left breast Category: Medical Plan: Condition is stable.
[2024-03-09 09:54] VITALS: BP 132/80; PULSE 94; O2SAT 98; BMI 38.4
== END 2024-03-09 10:21 | disposition home or self-care (01) ==
LOC: HO.HMCH 09:47
PROVIDERS: PCP Internal Medicine; Visit Provider Internal Medicine
DX: E78.5 Hyperlipidemia, unspecified (principal); D68.59 Other primary thrombophilia; D24.2 Benign neoplasm of left breast

== ENCOUNTER 2024-04-13 08:45 | Outpatient (REF) | payer BC, SELFPAY ==
[2024-04-13 09:44] LABS: Hemoglobin 12.4 g/dl (12.0-16.0); Mean Corpuscular Hemoglobin 25.1 pg (27.0-33.0); Mean Corpuscular Volume 80.8 fL (80.0-98.0); Platelet Count 398 X10*3/uL (160-400); Red Blood Count 4.95 X10*6/uL (4.20-5.50); Red Cell Distribution Width 15.3 % (11.0-16.0); White Blood Count 13.8 X10*3/uL (4.8-10.8)
[2024-04-13 10:14] LABS: Appearance Urine Cloudy; Color Urine Yellow; Glucose Urine UA Negative (Negative); Leukocyte Esterase Urine Negative (Negative); Nitrite Urine Negative (Negative); UMIC TRIGGER UA YES; Urine Blood Trace (Negative); Urine Ketones Negative (Negative); Urine Protein 30 (1+) mg/dL (Neg-Trace)
[2024-04-13 10:19] LABS: Bacteria Urine Trace (None Seen); Hyaline Casts Urine 0-2 /LPF (0-2); RBC Urine 0-2 /HPF (0-2); Squamous Epithelial Cell Urine 0-2 /HPF (0-2); WBC Urine 0-5 /HPF (0-5)
[2024-04-13 10:50] LABS: T4 Thyroxine 9.9 ug/dL (4.5-12.0)
[2024-04-13 11:06] LABS: Creatinine Urine 48.27 mg/dL; Total Protein Urine Random 42 mg/dL (<12)
[2024-04-13 11:21] LABS: Alanine Aminotransferase 17 U/L (0-31); Alkaline Phosphatase 77 U/L (39-117); Anion Gap 10 (12-20); Aspartate Amino Transferase 13 U/L (5-31); Bilirubin Direct 0.2 mg/dL (0.0-0.5); Bilirubin Total 0.6 mg/dL (0.0-1.0); Blood Urea Nitrogen 16 mg/dL (9-16); Calcium 10.1 mg/dL (8.4-10.2); Carbon Dioxide 27 mmol/L (22-29); Chloride 106 mmol/L (96-108); Cholesterol 172 mg/dL (<200); Estimated Glomerular Filt Rate > 60; Glucose Random 103 mg/dL (60-115); HDL Cholesterol 47 mg/dL (>40); LDL Cholesterol Calculated 107 mg/dL (<100); Potassium 4.5 mmol/L (3.3-5.1); Sodium 138 mmol/L (135-145); Total Protein 7.7 g/dL (6.5-8.0); Triglycerides 91 mg/dL (<150)
[2024-04-13 11:40] LABS: Thyroid Stimulating Hormone 0.81 uIU/mL (0.32-4.0)
== END 2024-04-13 08:46 | disposition home or self-care (01) ==
LOC: HO.LAB 08:45
PROVIDERS: PCP Internal Medicine; Visit Provider Internal Medicine Hypertension Specialist
DX: R80.9 Proteinuria, unspecified (principal); E78.5 Hyperlipidemia, unspecified; D68.59 Other primary thrombophilia
CPT/HCPCS: 36415; 80048; 80061; 80076; 81001; 81003; 82570; 84156; 84436; 84443; 85027

== ENCOUNTER 2024-04-17 10:55 | Outpatient (AMB) | payer BC, SELFPAY ==
[2024-04-17 11:03] VITALS: BP 104/76; PULSE 95; O2SAT 98; BMI 37.4
--- NOTE | 2024-04-17 11:03 | HO.NEPHOV_ITS ---
Vital Signs 04/17/24 11:03 Height 5 ft 7 in Weight 239 lb BMI 37.4 BP 104/76 Blood Pressure Location Lt brachial Position Sitting Pulse 95 Pulse Source Pulse Oximeter Pulse Oximetry (%) 98 Oxygen Delivery Method Room Air Intake Visit Reasons: Proteinuria/ Conf Personal Carer Required: No Accompanied by: Self / Same As Patient Allergies No Known Allergies Allergy (Verified 04/17/24 11:05) HPI Comments Details: . Bushra is a pleasant 43-year-old woman with history of protein S deficiency who was recently found to have proteinuria by dipstick. She has been referred for evaluation of proteinuria. Overall Bushra has been enjoying reasonably good health. Her grandmother and mother tested positive for protein S deficiency. She underwent the genetic testing and tested positive for protein S deficiency. She has no history of any thrombotic events. . She has 1 child age 13. Overall was normal. She underwent exploratory laparotomy for abdominal mass and was found to have a distended bladder Her renal function has been stable. She has dyslipidemia. Atorvastatin has been prescribed but she has not started taking the medication. No history of hypertension and diabetes mellitus She has an elevated BMI. She is history of smoking she quit smoking few years ago. She used to smoke heavily more than a pack a day. No history of any alcohol abuse. She is originally from [place]. Her used to be in the service currently he drives a truck. 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 11/11/2023. She was started dieting and has lost about 9-11 lb. She underwent kidney biopsy. Final report is still pending. No new issues. 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 Lungs entry equal no rales. Heart S1-S2 heard no gallop or rub. Abdomen soft nontender. Neuro alert awake oriented. No asterixis. Extremities no edema. Results Reviewed Nephrology Results: Hgb 12.4 g/dl (12.0-16.0) 04/13/24 WBC 13.8 X10*3/uL (4.8-10.8) H 04/13/24 Plt Count 398 X10*3/uL (160-400) 04/13/24 Sodium 138 mmol/L (135-145) 04/13/24 Potassium 4.5 mmol/L (3.3-5.1) 04/13/24 Chloride 106 mmol/L (96-108) 04/13/24 Carbon Dioxide 27 mmol/L (22-29) 04/13/24 BUN 16 mg/dL (9-16) 04/13/24 Creatinine 0.68 mg/dL (0.5-1.4) 04/13/24 Calcium 10.1 mg/dL (8.4-10.2) 04/13/24 Urine Protein 30 (1+) mg/dL (Neg-Trace) H 04/13/24 Urine Creatinine 48.27 mg/dL 04/13/24 Assessment & Plan Assessment & Plan (1) Proteinuria: Code(s): R80.9 - Proteinuria, unspecified Category: Medical (2) Protein S deficiency: Code(s): D68.59 - Other primary thrombophilia Category: Medical (3) Hyperlipidemia: Code(s): E78.5 - Hyperlipidemia, unspecified Category: Medical Plan . 43-year-old woman with a history of protein insufficiency and elevated BMI as proteinuria Urine protein creatinine ratio was 2.6. NAMRATA was positive atypical p-ANCA positive. C ANCA p-ANCA titers were pending C3 elevated at 2 1 2. C4 was 39. Serum cholesterol 232 with serum albumin of 3.4. Cholesterol down to 172 Bushra has nephrotic syndrome. 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 Genetic studies are in progress. At the present time renal function is stable. Blood pressure is well controlled. Encouraged her to stay on low-sodium diet She will benefit from weight loss. Continue weight loss urine protein creatinine ratio was 0.87 and would recommend starting on low- dose JOEY inhibitors. She is reluctant to start any new medications which is q uite understandable. I explained the importance of an JOEY inhibitor in the setting of proteinuria. She wants to lose more weight and reassess the use if ACEi Currently being evaluated by Hematology for protein S deficiency. Orders: Orders Basic Metabolic Panel 4 Months R80.9 - Proteinuria, unspecified UA and rflx microscopic 4 Months R80.9 - Proteinuria, unspecified Creatinine Urine 4 Months R80.9 - Proteinuria, unspecified Total Protein Urine Random 4 Months R80.9 - Proteinuria, unspecified Coding Level of Care Code Est Pt Level 4 (85944) Diagnoses Proteinuria R80.9 Protein S deficiency D68.59 Hyperlipidemia E78.5
== END 2024-04-17 11:20 | disposition home or self-care (01) ==
PROVIDERS: PCP Internal Medicine; Visit Provider Internal Medicine Hypertension Specialist
DX: R80.9 Proteinuria, unspecified (principal); D68.59 Other primary thrombophilia; E78.5 Hyperlipidemia, unspecified
CPT/HCPCS: 99214

== ENCOUNTER → 2024-04-17 10:55 | Outpatient (BNVA) | payer BC, SELFPAY | PROVIDERS: PCP Internal Medicine; Visit Provider Internal Medicine Hypertension Specialist ==

== ENCOUNTER 2024-08-11 09:45 | Outpatient (REF) | payer BC, SELFPAY ==
[2024-08-11 11:12] LABS: Appearance Urine Clear; Color Urine Yellow; Glucose Urine UA Negative (Negative); Leukocyte Esterase Urine Negative (Negative); Nitrite Urine Negative (Negative); PH 5.5 (5.0-9.0); UMIC TRIGGER UA YES; Urine Blood Trace (Negative); Urine Ketones Negative (Negative); Urine Protein 30 (1+) mg/dL (Neg-Trace)
[2024-08-11 11:13] LABS: Anion Gap 12 (12-20); Blood Urea Nitrogen 14 mg/dL (9-16); Calcium 9.3 mg/dL (8.4-10.2); Carbon Dioxide 26 mmol/L (22-29); Chloride 107 mmol/L (96-108); Estimated Glomerular Filt Rate > 60; Glucose Random 99 mg/dL (60-115); Potassium 4.1 mmol/L (3.3-5.1); Sodium 141 mmol/L (135-145)
[2024-08-11 11:27] LABS: Bacteria Urine None Seen (None Seen); Hyaline Casts Urine 0-2 /LPF (0-2); RBC Urine 0-2 /HPF (0-2); Squamous Epithelial Cell Urine 0-2 /HPF (0-2); WBC Urine 0-5 /HPF (0-5)
[2024-08-11 11:38] LABS: Creatinine Urine 67.71 mg/dL; Total Protein Urine Random 27 mg/dL (<12)
== END 2024-08-11 09:46 | disposition home or self-care (01) ==
LOC: HO.LAB 09:45
PROVIDERS: PCP Internal Medicine; Visit Provider Internal Medicine Hypertension Specialist
DX: R80.9 Proteinuria, unspecified (principal)
CPT/HCPCS: 36415; 80048; 81001; 81003; 82570; 84156

== ENCOUNTER 2024-09-14 09:59 | Outpatient (AMB) | payer OTHER, SELFPAY ==
--- NOTE | 2024-09-14 10:10 | A.OFFPC_ITS ---
Vital Signs 09/14/24 10:12 Height 5 ft 7 in Weight 207 lb 2 oz BMI 32.4 BP 110/68 Blood Pressure Location Lt brachial Position Sitting Pulse 89 Pulse Source Pulse Oximeter Temp 97.3 F Temp Source Temporal Artery Scan Pulse Oximetry (%) 98 Oxygen Delivery Method Room Air Intake Visit Reasons: 6 month f/u - see comments Intake Note: Patient is here to follow up on HLD, Cyst on neck. Forensic Scientist Required: No Pharmacy Operations Specialist: Not Required per policy Accompanied by: Self / Same As Patient Allergies No Known Allergies Allergy (Verified 09/14/24 10:11) Tobacco use date assessed: 09/14/24 Dental Screening Dental Screen Date: 09/14/24 Did you have a dental visit in the last 12 months?: No Did you have a dental problem in the last 6 months where you did not have access to dental care?: No Was dental information given to patient?: Patient declined [facility] Medical History (Updated 12/31/23 @ 10:06 by Angus Ferrer MD) Intraductal papilloma of left breast Left breast mass delivery delivered Proteinuria Protein S deficiency Surgical History H/O removal of cyst History of knee surgery Family History Paternal Grandfather Lung cancer Social History Household Members: Spouse and Family Housing: House Alcohol intake: never Patient Tobacco Use Status: Former Tobacco user e-Cigarette/Vaping Use: Never Used Second Hand Smoke Exposure: Yes service: No Current occupational status: employed 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 1. Little interest or pleasure in doing things: not at all 2. Feeling down, depressed, or hopeless: not at all 3. Trouble falling or staying asleep, or sleeping too much: not at all 4. Feeling tired or having little energy: not at all 5. Poor appetite or overeating: not at all 6. Feeling bad about yourself - or that you are a failure or have let yourself or your family down: not at all 7. Trouble concentrating on things, such as reading the newspaper or watching television: not at all 8. Moving or speaking so slowly that other people could have noticed. Or the opposite - being so fidgety or restless that you have been moving around a lot more than usual: not at all 9. Thoughts that you would be better off or of hurting yourself in some way: not at all Total score: 0 Depression Screening Interpretation: Negative Depression Screening Done: Yes Source: Developed by Drs. Adrian Adkins, Steph Ferraro, Cole Mcqueen and colleagues, with an educational kori from [employer]. Thrive Questionnaire Date Thrive assessed: 09/14/24 I am a: Patient What is your living situation today?: I have a steady place to live Within the past 12 months, did the food you bought not last and you didn't have the money to get more?: I choose not to answer this question Within the past 12 months, did you worry whether your food would run out before you got money to buy more?: I choose not to answer this question Do you have trouble paying for medicines?: No Do you have trouble getting transportation to medical appointments?: No Do you have trouble paying your heating and electricity bill?: No Do you have trouble taking care of your child, family member or friend?: No Do you have trouble with day-to-day activities such as bathing, preparing meals, shopping, managing finances, etc.?: No Are you currently unemployed and looking for a job?: No Are you interested in more education?: No Please select the resources that you would like help with: None Currently or been in a relationship where the following occur: I choose not to answer THRIVE Score: 0 AUDIT C Alcohol Use Questionnaire (AUDIT-C) 1. How often do you have a drink containing alcohol?: Never Total Score: 0 ASHLEE-7 AMB Questionnaire ASHLEE-7 Date ASHLEE - 7 assessed: 09/14/24 Feeling nervous, anxious, or on edge: 0 = Not at all Not being able to stop or control worryin = Not at all Worrying too much about different things: 0 = Not at all Trouble relaxin = Not at all Being so restless that it is hard to sit still: 0 = Not at all Becoming easily annoyed or irritable: 0 = Not at all Feeling afraid as if something awful might happen: 0 = Not at all Total ASHLEE-7 score (0-4 normal; 5-9 mild; 10-14 moderate; 15-21 severe): 0 Source: Developed by Drs. Adrian Adkins, Steph Ferraro, Cole Mcqueen and colleagues, with an educational kori from [employer]. Physical exam (Primary Care) Vital Signs: Last Vital Signs Temp 97.3 F 09/14/24 10:12 Pulse 89 09/14/24 10:12 BP 110/68 09/14/24 10:12 Pulse Ox 98 09/14/24 10:12 Oxygen Delivery Method Room Air 09/14/24 10:12 BMI result Body Mass Index 32.4 Tobacco/Smoking Status: Tobacco use Status Tobacco use date assessed 09/14/24 09/14/24 10:15 Patient Tobacco Use Status Former Tobacco user 09/14/24 10:15 e-Cigarette/Vaping Use Never Used 09/14/24 10:15 PHQ-9: PHQ-9 Score PHQ-9: Total score 0 09/14/24 10:15 Depression Screening Interpretation: Negative Thrive Assessment: Date of Thrive Assessment Date Thrive assessed 09/14/24 09/14/24 10:15 Currently or been in a relationship where the following occur: I choose not to answer Coding Level of Care Code Est Pt Level 4 (47086) Complex EM visit Add On G2211 Diagnoses Hyperlipidemia E78.5 Assessment & Plan Assessment & Plan (1) Hyperlipidemia: Code(s): E78.5 - Hyperlipidemia, unspecified Category: Medical Plan: BW ordered. Plan History of Present Illness The patient is a 44-year-old female presenting with issues related to a subcutaneous cyst and ongoing management of polycystic kidney disease. She has been following the guidance of her environmental scientist to manage the polycystic kidney disease through weight management, with no current pharmacological interventions. A follow-up with her environmental scientist is scheduled for October 06. The subcutaneous cyst has become more prominent with her weight loss, though it causes no discomfort and is primarily of cosmetic concern. She has expressed interest in surgical removal and is awaiting an appointment with a surgeon. The patient denies other health issues and confirms a recent mammogram, reporting no symptoms or abnormalities. Social History - Employment: Not specifically mentioned. - Origin and cultural background: From [place]. - Lifestyle: Recent weight loss noted. - Family status: Not specifically mentioned. - Physical activity and exercise: Not specifically mentioned. - Current nutritional intake and weight management: Actively managing weight, which is impacting her health condition. Review of Systems - General: Denies any general health concerns. - Genitourinary: Reports management of polycystic kidney disease. - Skin: Reports a noticeable subcutaneous cyst due to weight loss. - Other systems: Denies any complaints or abnormalities. Physical Exam General: Cooperative and healthy appearing Nutritional Appearance: Well nourished Orientation/consciousness: Patient oriented x3 Limitations: No limitations Head: Normal to inspection General: Appearance normal, both eyes and all related structures Neck: Normal visual inspection Chest: Normal palpation of entire chest wall Respiratory: Normal respiratory effort Neurology: Patient oriented x3 Results - Tests and Diagnostics: Recent mammogram completed, specific results not discussed. Plan 1. Polycystic Kidney Disease - Continue weight management as per nephrology guidance. - Scheduled follow-up with environmental scientist on October 06. 2. Subcutaneous Cyst - Referral to surgery for cyst removal. - Await appointment for surgical evaluation. Discussion Notes In today's discussion, we focused on the management of the patient?s polycystic kidney disease and the subcutaneous cyst. Weight management continues to be an effective non-pharmacological approach for controlling the polycystic kidney disease, and the patient is under regular surveillance with her environmental scientist with an appointment due on October 06. The presence of a subcutaneous cyst, accentuated by recent weight loss, was discussed with the patient showing intent to have it surgically removed for cosmetic reasons. I affirmed the plan to refer her to a surgeon and explained the potential procedural steps involving cyst removal; the patient consented to this approach. Patient Instructions - Continue weight management as it may improve condition. - Keep scheduled nephrology appointment on October 06. - Await call for surgical appointment for cyst removal. - Monitor any changes or discomfort from the cyst, and report any new symptoms. Orders: Orders Complete Blood Count no Diff 09/14/24 E78.5 - Hyperlipidemia, unspecified Lipid Panel 09/14/24 E78.5 - Hyperlipidemia, unspecified Basic Metabolic Panel 09/14/24 E78.5 - Hyperlipidemia, unspecified Liver Panel 09/14/24 E78.5 - Hyperlipidemia, unspecified Thyroid Stimulating Hormone 09/14/24 E78.5 - Hyperlipidemia, unspecified UA and rflx microscopic 09/14/24 E78. - Hyperlipidemia, unspecified
[2024-09-14 10:12] VITALS: BP 110/68; PULSE 89; TEMP 36.3; O2SAT 98; BMI 32.4
== END 2024-09-14 10:26 | disposition home or self-care (01) ==
LOC: HO.HMCH 09:59
PROVIDERS: PCP Internal Medicine; Visit Provider Internal Medicine
DX: E78.5 Hyperlipidemia, unspecified (principal)

== ENCOUNTER → 2024-09-14 09:59 | Outpatient (BNVA) | payer OTHER, SELFPAY | PROVIDERS: PCP Internal Medicine; Visit Provider Internal Medicine | DX: E78.5 Hyperlipidemia, unspecified (principal); Q61.3 Polycystic kidney, unspecified; L72.3 Sebaceous cyst | CPT/HCPCS: 99212 ==

== ENCOUNTER 2024-10-06 11:08 | Outpatient (AMB) | payer OTHER, SELFPAY ==
[2024-10-06 11:11] VITALS: BP 102/62; PULSE 117; O2SAT 98; BMI 31.5
--- NOTE | 2024-10-06 11:11 | HO.NEPHOV_ITS ---
Vital Signs 10/06/24 11:11 Height 5 ft 7 in Weight 201 lb BMI 31.5 BP 102/62 Blood Pressure Location Lt brachial Position Sitting Pulse 117 H Pulse Source Pulse Oximeter Pulse Oximetry (%) 98 Oxygen Delivery Method Room Air Intake Visit Reasons: Follow up/ Unable to reach Pot Press Operator Required: No Accompanied by: Self / Same As Patient Allergies No Known Allergies Allergy (Verified 10/06/24 11:13) Medication List - Last Reconciled 10/06/24 by Angus Ferrer MD No Known Home Meds HPI Comments Details: . Bushra is a pleasant 43-year-old woman with history of protein S deficiency who was recently found to have proteinuria by dipstick. She has been referred for evaluation of proteinuria. Overall Bushra has been enjoying reasonably good health. Her grandmother and mother tested positive for protein S deficiency. She underwent the genetic testing and tested positive for protein S deficiency. She has no history of any thrombotic events. . She has 1 child age 13. Overall was normal. She underwent exploratory laparotomy for abdominal mass and was found to have a distended bladder Her renal function has been stable. She has dyslipidemia. Atorvastatin has been prescribed but she has not started taking the medication. No history of hypertension and diabetes mellitus She has an elevated BMI. She is history of smoking she quit smoking few years ago. She used to smoke heavily more than a pack a day. No history of any alcohol abuse. She is originally from [place]. Her used to be in the service currently he drives a truck. 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 11/11/2023. She was started dieting and has lost about 9-11 lb. She underwent kidney biopsy. Final report is still pending. No new issues. 12/31/23 ;Lost 20 lbs with diet ;Feels better 10/06/24 44-year-old female presenting for a wellness check-up and follow-up on her proteinuria. She has experienced a significant reduction in urinary protein levels over the years due to lifestyle modifications, including walking regularly and adjusting her diet. Initially, protein levels were as high as 2,500 mg/dL, which have now decreased to 400 mg/dL, eliminating the need for medication at this time. Her blood pressure management has been optimized with non-pharmacological measures, showing improved readings at 102/62 mmHg, following substantial weight loss from 301 pounds to approximately 201 pounds. She remains asymptomatic with regards to hypertension-related complications. 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 Lungs entry equal no rales. Heart S1-S2 heard no gallop or rub. Abdomen soft nontender. Neuro alert awake oriented. No asterixis. Extremities no edema. Results Reviewed Nephrology Results: Hgb 12.4 g/dl (12.0-16.0) 04/13/24 WBC 13.8 X10*3/uL (4.8-10.8) H 04/13/24 Plt Count 398 X10*3/uL (160-400) 04/13/24 Sodium 141 mmol/L (135-145) 08/11/24 Potassium 4.1 mmol/L (3.3-5.1) 08/11/24 Chloride 107 mmol/L (96-108) 08/11/24 Carbon Dioxide 26 mmol/L (22-29) 08/11/24 BUN 14 mg/dL (9-16) 08/11/24 Creatinine 0.62 mg/dL (0.5-1.4) 08/11/24 Calcium 9.3 mg/dL (8.4-10.2) 08/11/24 Urine Protein 30 (1+) mg/dL (Neg-Trace) H 08/11/24 Urine Creatinine 67.71 mg/dL 08/11/24 Assessment & Plan Assessment & Plan (1) Proteinuria: Code(s): R80.9 - Proteinuria, unspecified Category: Medical (2) Protein S deficiency: Code(s): D68.59 - Other primary thrombophilia Category: Medical (3) Hyperlipidemia: Code(s): E78.5 - Hyperlipidemia, unspecified Category: Medical Plan . 44-year-old woman with a history of protein insufficiency and elevated BMI as proteinuria Urine protein creatinine ratio was 2.6. NAMRATA was positive atypical p-ANCA positive. C ANCA p-ANCA titers were pending C3 elevated at 2 1 2. C4 was 39. Serum cholesterol 232 with serum albumin of 3.4. Cholesterol down to 172 Bushra had nephrotic syndrome. 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 Genetic studies are in progress. At the present time renal function is stable. Blood pressure is Excellent Encouraged her to stay on low-sodium diet She will benefit from weight loss. Continue weight loss urine protein creatinine ratio was 0.18 and would hold off on starting on low-dose JOEY inhibitors. She wants to continue to lose more weight and reassess the use if ACEi Currently being evaluated by Hematology for protein S deficiency. Orders: Orders Total Protein Urine Random 6 Months R80.9 - Proteinuria, unspecified UA and rflx microscopic 6 Months R80.9 - Proteinuria, unspecified Creatinine Urine 6 Months R80.9 - Proteinuria, unspecified Vitamin D 25-OH Total 6 Months R80.9 - Proteinuria, unspecified Basic Metabolic Panel 6 Months R80.9 - Proteinuria, unspecified Coding Level of Care Code Est Pt Level 4 (16497) Diagnoses Proteinuria R80.9 Protein S deficiency D68.59 Hyperlipidemia E78.5
== END 2024-10-06 11:33 | disposition home or self-care (01) ==
LOC: HO.HKA 11:09
PROVIDERS: PCP Internal Medicine; Visit Provider Internal Medicine Hypertension Specialist
DX: R80.9 Proteinuria, unspecified (principal); D68.59 Other primary thrombophilia; E78.5 Hyperlipidemia, unspecified
CPT/HCPCS: 99214

== ENCOUNTER → 2024-10-06 11:08 | Outpatient (BNVA) | payer OTHER, SELFPAY | PROVIDERS: PCP Internal Medicine; Visit Provider Internal Medicine Hypertension Specialist | DX: R80.9 Proteinuria, unspecified (principal); D68.59 Other primary thrombophilia; E78.5 Hyperlipidemia, unspecified | CPT/HCPCS: 99212 ==